=== PATIENT | male | born 1960 | race Caucasian/White ===

== ENCOUNTER 2019-12-18 19:55 | Emergency (ER) | payer OTHER, SELFPAY ==
[2019-12-18 20:03] VITALS: BP 144/89; PULSE 90; RESP 18; TEMP 36.1; O2SAT 95; BMI 33.2
--- NOTE | 2019-12-18 21:04 | CTR_ITS ---
PROCEDURE INFORMATION: Exam: CT Abdomen And Pelvis With Contrast Exam date and time: 12/18/2019 10:10 PM Age: 59 years old Clinical indication: Abdominal pain; Periumbilical; Patient HX: H/o hernia; Additional info: Abdominal pain; Ventral hernia TECHNIQUE: Imaging protocol: Computed tomography of the abdomen and pelvis with intravenous contrast. Total DLP: 1366.04 mGy-cm Radiation optimization: All CT scans at this facility use at least one of these dose optimization techniques: automated exposure control; mA and/or kV adjustment per patient size (includes targeted exams where dose is matched to clinical indication); or iterative reconstruction. Contrast material: OMNI 300; Contrast volume: 95 ml; Contrast route: IV; COMPARISON: CT abdomen pelvis w con* [id number] 10/13/2018 3:14 AM FINDINGS: Mediastinum: A small hiatal hernia is present. Liver: There is a diffuse decrease in hepatic parenchymal density, consistent with fatty infiltration. Gallbladder and bile ducts: Normal. No calcified stones. No ductal dilation. Pancreas: Normal. No ductal dilation. Spleen: The spleen is normal. An accessory splenule is present. Adrenals: Normal. No mass. Kidneys and ureters: There is no evidence of hydronephrosis. There is punctate left nephrolithiasis. There is no evidence of right renal calcifications. There are multiple renal hypodensities that cannot be further characterized on the current examination. There is a 3.6 cm midpole simple cyst in the left kidney. Stomach and bowel: Moderate diverticulosis is present in the distal colon. There is no evidence of colitis/diverticulitis. There is no bowel thickening or inflammatory changes. Appendix: No evidence of appendicitis. Intraperitoneal space: Unremarkable. No free air. No significant fluid collection. Vasculature: Unremarkable.No abdominal aortic aneurysm. Lymph nodes: Unremarkable.No enlarged lymph nodes. Bladder: There is nonspecific bladder wall thickening. This may be related to incomplete distention. Reproductive: The prostate demonstrates moderate nonspecific enlargement. The seminal vesicles are normal. Bones/joints: There are moderate degenerative changes in the spine. Soft tissues: Unchanged small fat filled inguinal hernias are noted. There is an unchanged small fat filled umbilical hernia. No ventral hernia. CT/CT abdomen pelvis w con* [id number] IMPRESSION: 1. Unchanged exam. Unchanged small fat filled umbilical hernia and small fat filled inguinal hernias. No bowel thickening or inflammatory changes. 2. There is a 3.6 cm cyst midpole left kidney. No follow-up is necessary. COMMENTS: Consistent with the [employer]'s Incidental Findings Committee white paper (J Am Fan Radiol 2018): Any incidental cystic renal lesion classified in this report as too small to characterize or simple appearing is likely a benign cyst. No follow-up imaging is recommended for these lesions per consensus recommendations based on imaging criteria. Radiation Dose CTDIVOL = (mGy): DLP = 1366.04 (mGy-cm)
--- NOTE | 2019-12-18 21:06 | W.ED.ABDPA2 ---
HPI - Abdominal Pain General: Chief Complaint: Abdominal Pain Stated Complaint: ABD PAIN Time Seen by Provider: 12/18/19 20:50 Source: patient Mode of arrival: ambulatory Limitations: no limitations History of Present Illness: HPI narrative: Patient is a very nice 59-year-old male here for complaints of abdominal pain that began earlier today. Patient tells me he has had intermittent abdominal pains for years related to a large ventral hernia but nothing that has felt as severe as the pain today. He reports nausea without vomiting. Fairly normal BMs but states he has had a little bit of constipation today. Urinary habits have been normal. Has not been running fevers. MD elicited complaint: abdominal pain Onset (ago): hour(s) Pain Consistency: constant Radiation: none Migration to: no migration Exacerbating factors: nothing Relieving factors: nothing Associated Symptoms: Reports constipation (reports normally has 3 BMs daily-today only has had one; still passing gas) and nausea; Denies change in stool character, chills, coffee ground emesis, diarrhea, dysuria, fever(s), heartburn, hematochezia, hematemesis, melena, syncope and vomiting Review of Systems Const: Denies: fever, chills, change in appetite, change in weight, fatigue, malaise or night sweats Card: Denies: chest pain, palpitations, irregular heart rhythm, edema, swelling of feet/ankles, lightheadedness, syncope, pre-syncope, shortness of breath on exertion or shortness of breath when lying down Resp: Denies: shortness of breath GI: Reports: abdominal pain, nausea and constipation (reports normally has 3 BMs daily-today only has had one; still passing gas); Denies: vomiting, vomiting blood, coffee grounds in vomit, heartburn/indigestion, diarrhea, change in stool character, blood in stool, black tarry stool, white/light colored stool or fatty stool : Denies: flank pain, difficulty urinating, painful urination, urinary frequency, urinary urgency or urinary hesitancy Musc: Denies: neck pain or back pain Skin/Breast: Denies: rash Neuro: Denies: headache, numbness in extremities, weakness in extremities or changes in sensation PFSH ED PFSH: Social History Smoking and tobacco status: never smoked Physical Exam Const: COMMON NORMALS: no apparent distress, average body habitus, oriented x3, no limitations, healthy appearing, alert and well nourished Resp: COMMON NORMALS: normal respiratory effort and clear to auscultation bilaterally AUSCULTATION: clear to auscultation bilaterally Cardio: COMMON NORMALS: regular rate and regular rhythm RATE: regular rate RHYTHM: regular rhythm GI: COMMON NORMALS: normal to inspection, nondistended, normoactive bowel sounds, soft to palpation, no hepatosplenomegaly and no masses AUSCULTATION: Yes normoactive bowel sounds PALPATION: Yes soft, Yes tender (midline abdomen; ventral hernia present with valsalva) and Yes no hepatosplenomegaly OTHER: no evidence for hernia strangulation/incarceration : COMMON NORMALS: Yes no CVA tenderness BLADDER/KIDNEY EXAM: Yes no CVA tenderness Back/Pelvis: COMMON NORMALS: no CVA tenderness, thoracic and lumbar spine normal to inspection, no thoracic nor lumbar tenderness and thoraco-lumbar ROM normal Extremity: COMMON NORMALS: normal to inspection Neuro: COMMON NORMALS: oriented x3 SENSORIUM/ORIENTATION: Yes alert Skin: COMMON NORMALS: no rashes or lesions noted GENERAL SKIN EXAM: no rashes or lesions noted Course Vital Signs: Vital signs: Vital Signs Temperature 97.0 F L 12/18/19 20:03 Pulse Rate 73 12/18/19 22:44 Respiratory Rate 16 12/18/19 22:45 Blood Pressure 156/102 12/18/19 22:44 Pulse Oximetry 96 12/18/19 22:45 MDM - Abdominal Pain MDM Narrative: Medical decision making narrative: pt was offered referral to general surgery for evaluation and possible elective repair but pt denied stating he would like to just see if the pain will subside on its own; CT here looks okay; no clinical evidence for strangulation/incarceration; strict return to ED precautions given Lab Data: Labs: Lab Results 12/18/19 12/18/19 12/18/19 Range/Units 20:57 21:01 21:01 WBC 12.0 H (4.0-10.0) 10^3/ uL RBC 5.70 H (4.1-5.3) 10^6/u L Hgb 16.9 H (11.7-16.6) g/dL Hct 49.0 (42.0-52.0) % MCV 86.0 (80-94) fL MCH 29.6 (28.0-34.0) pg MCHC 34.5 (30.0-36.0) g/dL RDW 12.8 (12.1-15.1) % Plt Count 249 (130-400) 10^3/c mm MPV 10.2 (7.4-10.4) fL Neut % (Auto) 66.4 % Lymph % (Auto) 20.4 % Dubois % (Auto) 10.6 % Eos % (Auto) 1.8 % Baso % (Auto) 0.5 % Neut # (Auto) 8.0 H (1.8-7.7) 10^3/u L Lymph # (Auto) 2.5 (0.8-4.8) 10^3/u L Dubois # (Auto) 1.3 H (0.2-0.9) 10^3/u L Eos # (Auto) 0.2 (0.0-0.8) 10^3/u L Baso # (Auto) 0.1 (0.0-0.1) 10^3/u L Nucleated RBC % (a uto) 0 % Nucleated RBCs # 0.0 /100WBC Sodium 138 (136-145) mmol/L Potassium 3.5 (3.5-5.1) mmol/L Chloride 98 (98-107) mmol/L Carbon Dioxide 26 (22-29) mmol/L Anion Gap 17.5 (5-19) BUN 16 (8-23) mg/dL Creatinine 1.1 (0.7-1.2) mg/dL GFR Calculation 68.1 L (90-130) mL/min Glucose 105 (65-115) mg/dL Calculated Osmolal ity 283 L (285-295) mOsm/k g Lactate (0.5-2.2) mmol/L Calcium 9.7 (8.5-10.5) mg/dL Total Bilirubin 1.2 (0.15-1.2) mg/dL AST 36 (0-40) U/L ALT 64 H (0-41) U/L Alkaline Phosphata se 88 (40-130) IU/L Total Protein 8.1 (6.6-8.7) g/dL Albumin 4.6 (3.5-5.2) g/dL Globulin 3.5 (1.3-4.6) g/dL Lipase 37 (13-60) U/L Urine Color Yellow (Yellow) Urine Appearance Clear (CLEAR) Urine pH 7 (5-7) Ur Specific Gravit y 1.015 (1.005-1.030) Urine Protein Neg (Negative) Urine Glucose (UA) Norm (Normal) Urine Ketones Negative (Negative) Urine Blood Neg (Negative) Urine Nitrate Negative (Negative) Urine Bilirubin Neg (NEGATIVE) Urine Urobilinogen Norm (Negative) mg/dL Ur Leukocyte Varsha ase Negative (Negative) 12/18/19 Range/Units 21:01 WBC (4.0-10.0) 10^3/ uL RBC (4.1-5.3) 10^6/u L Hgb (11.7-16.6) g/dL Hct (42.0-52.0) % MCV (80-94) fL MCH (28.0-34.0) pg MCHC (30.0-36.0) g/dL RDW (12.1-15.1) % Plt Count (130-400) 10^3/c mm MPV (7.4-10.4) fL Neut % (Auto) % Lymph % (Auto) % Dubois % (Auto) % Eos % (Auto) % Baso % (Auto) % Neut # (Auto) (1.8-7.7) 10^3/u L Lymph # (Auto) (0.8-4.8) 10^3/u L Dubois # (Auto) (0.2-0.9) 10^3/u L Eos # (Auto) (0.0-0.8) 10^3/u L Baso # (Auto) (0.0-0.1) 10^3/u L Nucleated RBC % (a uto) % Nucleated RBCs # /100WBC Sodium (136-145) mmol/L Potassium (3.5-5.1) mmol/L Chloride (98-107) mmol/L Carbon Dioxide (22-29) mmol/L Anion Gap (5-19) BUN (8-23) mg/dL Creatinine (0.7-1.2) mg/dL GFR Calculation (90-130) mL/min Glucose (65-115) mg/dL Calculated Osmolal ity (285-295) mOsm/k g Lactate 1.4 (0.5-2.2) mmol/L Calcium (8.5-10.5) mg/dL Total Bilirubin (0.15-1.2) mg/dL AST (0-40) U/L ALT (0-41) U/L Alkaline Phosphata se (40-130) IU/L Total Protein (6.6-8.7) g/dL Albumin (3.5-5.2) g/dL Globulin (1.3-4.6) g/dL Lipase (13-60) U/L Urine Color (Yellow) Urine Appearance (CLEAR) Urine pH (5-7) Ur Specific Gravit y (1.005-1.030) Urine Protein (Negative) Urine Glucose (UA) (Normal) Urine Ketones (Negative) Urine Blood (Negative) Urine Nitrate (Negative) Urine Bilirubin (NEGATIVE) Urine Urobilinogen (Negative) mg/dL Ur Leukocyte Varsha ase (Negative) Imaging Data ^: CT Abd/Pel: Radiologist's impression: [place] [address] CT Scan Report Signed Patient: Mark Golden Unit #: [id number] : 1960 Age/Sex: 59 / M ADM Date: 12/18/19 Loc: ER Room/Bed: Attending Dr: Ordering Provider/Ordering MD: Sunshine Oden Date of Service: 12/18/19 Procedure(s): CT abdomen pelvis w con* [id number] Accession Number(s): [id number] Report Number: [id number] PROCEDURE INFORMATION: Exam: CT Abdomen And Pelvis With Contrast Exam date and time: 12/18/2019 10:10 PM Age: 59 years old Clinical indication: Abdominal pain; Periumbilical; Patient HX: H/o hernia; Additional info: Abdominal pain; Ventral hernia TECHNIQUE: Imaging protocol: Computed tomography of the abdomen and pelvis with intravenous contrast. Total DLP: 1366.04 mGy-cm Radiation optimization: All CT scans at this facility use at least one of these dose optimization techniques: automated exposure control; mA and/or kV adjustment per patient size (includes targeted exams where dose is matched to clinical indication); or iterative reconstruction. Contrast material: OMNI 300; Contrast volume: 95 ml; Contrast route: IV; COMPARISON: CT abdomen pelvis w con* [id number] 10/13/2018 3:14 AM FINDINGS: Mediastinum: A small hiatal hernia is present. Liver: There is a diffuse decrease in hepatic parenchymal density, consistent with fatty infiltration. Gallbladder and bile ducts: Normal. No calcified stones. No ductal dilation. Pancreas: Normal. No ductal dilation. Spleen: The spleen is normal. An accessory splenule is present. Adrenals: Normal. No mass. Kidneys and ureters: There is no evidence of hydronephrosis. There is punctate left nephrolithiasis. There is no evidence of right renal calcifications. There are multiple renal hypodensities that cannot be further characterized on the current examination. There is a 3.6 cm midpole simple cyst in the left kidney. Stomach and bowel: Moderate diverticulosis is present in the distal colon. There is no evidence of colitis/diverticulitis. There is no bowel thickening or inflammatory changes. Appendix: No evidence of appendicitis. Intraperitoneal space: Unremarkable. No free air. No significant fluid collection. Vasculature: Unremarkable.No abdominal aortic aneurysm. Lymph nodes: Unremarkable.No enlarged lymph nodes. Bladder: There is nonspecific bladder wall thickening. This may be related to incomplete distention. Reproductive: The prostate demonstrates moderate nonspecific enlargement. The seminal vesicles are normal. Bones/joints: There are moderate degenerative changes in the spine. Soft tissues: Unchanged small fat filled inguinal hernias are noted. There is an unchanged small fat filled umbilical hernia. No ventral hernia. CT/CT abdomen pelvis w con* [id number] IMPRESSION: 1. Unchanged exam. Unchanged small fat filled umbilical hernia and small fat filled inguinal hernias. No bowel thickening or inflammatory changes. 2. There is a 3.6 cm cyst midpole left kidney. No follow-up is necessary. COMMENTS: Consistent with the [employer]'s Incidental Findings Committee white paper (J Am Fan Radiol 2018): Any incidental cystic renal lesion classified in this report as too small to characterize or simple appearing is likely a benign cyst. No follow-up imaging is recommended for these lesions per consensus recommendations based on imaging criteria. Radiation Dose CTDIVOL = (mGy): DLP = 1366.04 (mGy-cm) Dictated By: Latosha Willis Signed By: Latosha Willis Signed Date/Time: 12/18/192239 DD/ 38 Discharge Plan Discharge Patient Disposition: Home, Self-Care Clinical Impression: Abdominal hernia Qualifiers: Hernia type: ventral Obstruction and gangrene presence: without obstruction or gangrene Qualified Code(s): K43.9 - Ventral hernia without obstruction or gangrene Condition: Stable Prescriptions: New hydrocodone-acetaminophen 5-325 mg tablet 1 tab PO Q6H PRN (Reason: pain) Qty: 14 RF: 0 Zofran 4 mg tablet 4 mg PO Q6H PRN (Reason: nausea and vomiting) Qty: 14 RF: 0 No Action acetaminophen [Tylenol Arthritis Pain] 650 mg Tablet Extended Release 650 mg PO Q8H PRN (Reason: Pain) RF: 0 meloxicam [Mobic] 7.5 mg Tablet 7.5 mg PO DAILY RF: 0 lisinopril-hydrochlorothiazide 20-25 mg Tablet 1 tab PO DAILY RF: 0 Probiotic 1 tab PO DAILY RF: 0 Louisa Allergy 180 mg Tablet 180 mg PO DAILY RF: 0 Discharge Orders: Discharge Order (Routine); Ordered 12/18/19 Ordered By: Sunshine Oden Referrals: Yanna Gonzalez DO [Family Provider] - Consuelo Foster MD [Primary Care Provider] - Discharge Diet: Usual diet Discharge Activity: Increase activity as tolerated Patient Instructions: Ventral Hernia (ED) Activity Restrictions/Additional Instructions: As discussed if hernia continues to bother you you may elect to see a general surgeon for further evaluation and a possible elective repair. Return to the emergency department immediately for severe pain, nausea/vomiting, inability to have a bowel movement or pass gas, fevers, or any other concerns you may have. Coding Level of Care Code ED Account Manager for [facility] Fwd Exam Comprehensive
[2019-12-18 21:08] VITALS: BP 123/93; PULSE 79; RESP 18; O2SAT 96
[2019-12-18 21:13] LABS: Add Urine Microscopic? NO
[2019-12-18 21:25] LABS: Basophils # 0.1 10^3/uL (0.0-0.1); Basophils % 0.5 %; Eosinophils # 0.2 10^3/uL (0.0-0.8); Eosinophils % 1.8 %; Hemoglobin 16.9 g/dL (11.7-16.6); Lymphocytes # 2.5 10^3/uL (0.8-4.8); Lymphocytes % 20.4 %; Mean Corpuscular HGB Conc 34.5 g/dL (30.0-36.0); Mean Corpuscular Hemoglobin 29.6 pg (28.0-34.0); Mean Platelet Volume 10.2 fL (7.4-10.4); Monocytes # 1.3 10^3/uL (0.2-0.9); Monocytes % 10.6 %; Neutrophils % 66.4 %; Nucleated Red Blood Cells % 0 %; Platelet Count 249 10^3/cmm (130-400); Red Cell Distribution Width 12.8 % (12.1-15.1)
[2019-12-18 21:59] LABS: Bilirubin Urine Neg (NEGATIVE); Blood Urine Neg (Negative); Glucose Urine UA Norm (Normal); Ketones Urine Negative (Negative); Leukocyte Esterase Urine Negative (Negative); Nitrate Urine Negative (Negative); Protein Urine Neg (Negative); Specific Gravity, Urine 1.015 (1.005-1.030); Urine Appearance Clear (CLEAR); Urine Color Yellow (Yellow); Urobilinogen Urine Norm (Negative); pH Urine 7 (5-7)
[2019-12-18 22:00] LABS: Lactate (Lactic Acid level) 1.4 mmol/L (0.5-2.2)
[2019-12-18 22:01] LABS: Albumin Level 4.6 g/dL (3.5-5.2); Alkaline Phosphatase 88 IU/L (40-130); Anion Gap 17.5 (5-19); Blood Urea Nitrogen 16 mg/dL (8-23); Calcium 9.7 mg/dL (8.5-10.5); Carbon Dioxide 26 mmol/L (22-29); Chloride 98 mmol/L (98-107); Globulin 3.5 g/dL (1.3-4.6); Glomerular Filtration Rate 68.1 mL/min (90-130); Glucose 105 mg/dL (65-115); Lipase 37 U/L (13-60); Osmolality Calculated 283 mOsm/kg (285-295); Potassium 3.5 mmol/L (3.5-5.1); Sodium 138 mmol/L (136-145); Total Bilirubin 1.2 mg/dL (0.15-1.2); Total Protein 8.1 g/dL (6.6-8.7)
[2019-12-18 22:16] LABS: Alanine Aminotransferase 64 U/L (0-41); Aspartate Amino Transferase 36 U/L (0-40)
--- NOTE | 2019-12-18 22:17 | PC.NURSE ---
Pt ambulated to CT at this time for abdomen and pelvic CT.
[2019-12-18] MEDS: iohexol 300 mg/mL 100 mL Btl IV (22:21)
[2019-12-18] MEDS: ondansetron 2 mg/ML SDV 2 mL 4 MG IVP (22:41)
[2019-12-18 22:44] VITALS: BP 156/102; PULSE 73; RESP 16; O2SAT 96
[2019-12-18 22:45] VITALS: RESP 16; O2SAT 96
[2019-12-18] MEDS: morphine 4 mg/mL SDV 1 mL IVP (22:45)
[2019-12-18 23:38] VITALS: BP 134/100; PULSE 65; RESP 16; O2SAT 96
== END 2019-12-18 23:39 | disposition home or self-care (01) ==
PROVIDERS: Emergency Medicine; Emergency Provider Physician Assistant; Family Provider Family Medicine; PCP Family Medicine
DX: K43.9 Ventral hernia without obstruction or gangrene (principal)
CPT/HCPCS: 12345; 74177; 80053; 81003; 83605; 83690; 85025; 96374; 96375; 99283; 99284; J2270; J2405; Q9967

== ENCOUNTER → 2020-08-19 10:07 | Outpatient (BNVA) | payer OTHER, SELFPAY | PROVIDERS: Family Provider Family Medicine; PCP Family Medicine; Visit Provider Family Medicine | DX: I10 Essential (primary) hypertension (principal); M89.49 Other hypertrophic osteoarthropathy, multiple sites; E78.1 Pure hyperglyceridemia | CPT/HCPCS: 80053; 80061 ==

== ENCOUNTER → 2021-09-09 09:29 | Outpatient (BNVA) | payer BC, SELFPAY | PROVIDERS: Family Provider Family Medicine; PCP Family Medicine; Visit Provider Family Medicine | DX: Z12.5 Encounter for screening for malignant neoplasm of prostate (principal); E78.1 Pure hyperglyceridemia; I10 Essential (primary) hypertension | CPT/HCPCS: 80053; 80061; 84153 ==

== ENCOUNTER → 2022-07-27 09:54 | Outpatient (BNVA) | payer BC, SELFPAY | PROVIDERS: Family Provider Family Medicine; PCP Family Medicine; Visit Provider Emergency Medicine | DX: R50.9 Fever, unspecified (principal); J06.9 Acute upper respiratory infection, unspecified | CPT/HCPCS: 87400; 87426 ==

== ENCOUNTER → 2022-10-28 08:50 | Outpatient (BNVA) | payer BC, SELFPAY | PROVIDERS: Family Provider Family Medicine; PCP Family Medicine; Visit Provider Family Medicine | DX: I10 Essential (primary) hypertension (principal); M89.49 Other hypertrophic osteoarthropathy, multiple sites; E78.1 Pure hyperglyceridemia; Z12.5 Encounter for screening for malignant neoplasm of prostate | CPT/HCPCS: 80053; 80061; G0103 ==

== ENCOUNTER → 2024-02-08 14:32 | Outpatient (BNVA) | payer BC, SELFPAY | PROVIDERS: Family Provider Family Medicine; PCP Family Medicine; Visit Provider Family Medicine | DX: M89.49 Other hypertrophic osteoarthropathy, multiple sites (principal); I10 Essential (primary) hypertension; E78.1 Pure hyperglyceridemia; Z12.5 Encounter for screening for malignant neoplasm of prostate | CPT/HCPCS: 80053; 80061; G0103 ==

== ENCOUNTER → 2024-08-15 14:26 | Outpatient (BNVA) | payer BC, SELFPAY | PROVIDERS: Family Provider Family Medicine; PCP Family Medicine; Visit Provider Family Medicine | DX: R97.20 Elevated prostate specific antigen [PSA] (principal); R36.1 Hematospermia; I10 Essential (primary) hypertension; N41.1 Chronic prostatitis; Z12.5 Encounter for screening for malignant neoplasm of prostate; M25.511 Pain in right shoulder | CPT/HCPCS: 73030; 80048; 81000; 83735; 84153; 87086 ==

== ENCOUNTER → 2024-12-19 09:25 | Outpatient (BNVA) | payer BC, SELFPAY | PROVIDERS: PCP Family Medicine; Visit Provider Family Medicine | DX: M89.49 Other hypertrophic osteoarthropathy, multiple sites (principal); I10 Essential (primary) hypertension; E78.1 Pure hyperglyceridemia; R97.20 Elevated prostate specific antigen [PSA]; Z12.5 Encounter for screening for malignant neoplasm of prostate; R21 Rash and other nonspecific skin eruption | CPT/HCPCS: 80048; 80061; 84153 ==